=== PATIENT | female | born 1955 | race Caucasian/White ===

== ENCOUNTER 2019-08-25 14:09 | Emergency (ER) | payer BC ==
--- OUTSIDE RECORDS SUMMARY | 2019-08-25 14:15 | XMS REPORT ---
:1955 Author Name LucaLeslie gomezdith Address [address] [place] [address] Care Team Providers Name Role Phone Magda Perdue Unavailable Unavailable PROBLEMS Type Condition ICD9-CM Code [id number] Code Onset Dates Condition Status SNOMED Code Problem Rectocele N81.6 Active [id number] ALLERGIES No Information ENCOUNTERS Encounter Location Date Diagnosis [facility] [address] Oct, OBGYN [place], [place] [id number] [facility] O[facility] [address] [place] [address] Oct, Encounter for [address] [place], gynecological examination [place] [id number] (general) (routine) without abnormal findings Z01.419 ; Encounter for screening for malignant neoplasm of cervix Z12.4 and Encounter for screening for malignant neoplasm of colon Z12.11 [facility] Aug, OBGYN [place], [place] [id number] [facility] 103 Sep, [place]BG[place] [id number] [facility] O[facility] [address] [facility] Sep, Encounter for Road [address] [place], gynecological examination [place] [id number] (general) (routine) with abnormal findings Z01.411 ; Encounter for screening for malignant neoplasm of colon Z12.11 ; Encounter for other screening for malignant neoplasm of breast Z12.39 and Rectocele N81.6 [facility] [address] May, [place]BGYN [place], [place] [id number] [facility] [address] [facility] Jun, Encounter for Road [address] [place], gynecological examination [place] [id number] (general) (routine) without abnormal findings Z01.419 and Encounter for screening for malignant neoplasm of colon Z12.11 [facility] OBGYN 103 Apr, OBGYN [place], [place] [id number] [facility] [address] [facility] May, ROUTINE [employer] [address] [place], V72.31 ; SCREEN [place] [id number] NEOP-COLON V76.51 ; SCREEN MAMMOGRAM NEC V76.12 and 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 302.73 [facility] OBGYN 103 22 Jun, 2013 OBGYN [place], [place] [id number] [facility] [address] [facility] Jul, ROUTINE [employer] [place], V72.31 ; SCREEN [place] [id number] NEOP-COLON V76.51 ; SCREEN MAMMOGRAM NEC V76.12 ; FAMILY HX OSTEOPOROSIS V17.81 and Mastalgia 611.71 IMMUNIZATIONS No Known Immunizations SOCIAL HISTORY Never Assessed REASON FOR REFERRAL FUNCTIONAL STATUS PLAN OF CARE VITAL SIGNS MEDICATIONS Unknown Medications PROCEDURES No Known procedures RESULTS No Results REASON FOR VISIT 10/2019 Insurance Providers [facility] Member Patient Patient Patient Patient Patient Subscriber Subscriber Subscriber Group Insurance Plan Plan Plan Plan ID Relationship Address Phone Name Date of ID Name Date of No Type Insurance Insurance Insurance Coverage to Subscriber Address Phone Name Dates [employer] [phone] [employer] self [place] [id number] [place] [address] Cross/Blue [place] Cross/Blue Shield [id number] Shield MEDICAL (GENERAL) HISTORY Type Description Date Medical History anemia Medical History hypothyriodism Medical History reflux Medical History depression Medical History Mastalgia Medical History 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
--- NOTE | 2019-08-25 16:04 | ED ---
Complex/Multi-Sys Presentation - HPI Summary HPI Summary: 64 year old female presents with numbness in her feet today. States started 1 foot and went to the other foot. States that she was having chest pain that started after that. States it lasted for an hour. she is not currently having chest pain. It was a dull pressure in the center of her chest. she states was 5 out of 10. She states that she had no shortness breath. It did not change with deep breath. States she's been sick for past 4 weeks and was on zpack. Has had a cough occasionally. Denies any abdominal pain. No nausea or vomiting. No diarrhea. She denies any weakness. States she did have some numbness in feet only. no back pain. no urinary symptoms. no loss of bowel or bladder. no saddle anaesthesia. no fevers. She states this has never happened before. Does have family history of cardiac disease. States that she only has hypothyroidism. no pain or swelling in her calf muscles. No recent travel. - History Of Current Complaint Chief Complaint: EDGeneral Time Seen by Provider: 08/25/19 15:34 - Allergies/Home Medications Allergies/Adverse Reactions: Allergies Allergy/AdvReac Type Severity Reaction Status Date / Time No Known Allergies Allergy Verified 05/19/17 09:50 PMH/Surg Hx/FS Hx/Imm Hx Endocrine/Hematology History: Reports: Hx Thyroid Disease Denies: Hx Anticoagulant Therapy Respiratory History: Denies: Hx Asthma - Cancer History Hx Chemotherapy: No Hx Radiation Therapy: No Infectious Disease History: No Infectious Disease History: Denies: Traveled Outside the [place] in Last 30 Days - Family History Known Family History: Positive: Non-Contributory - Social History Alcohol Use: Occasionally Alcohol Amount: 1 glass of wine Substance Use Type: Reports: None Smoking Status (MU): Never Smoked Tobacco Review of Systems Negative: Fever Positive: Chest Pain Positive: Cough. Negative: Shortness Of Breath Neurological: Other - cold in feet All Other Systems Reviewed And Are Negative: Yes Physical Exam Triage Information Reviewed: Yes Vital Signs On Initial Exam: Initial Vitals Temp Pulse Resp BP Pulse Ox 98.1 F 68 15 129/66 99 08/25/19 14:10 08/25/19 14:10 08/25/19 14:10 08/25/19 14:10 08/25/19 14:10 Vital Signs Reviewed: Yes Appearance: Positive: Well-Appearing Skin: Positive: Warm, Dry Head/Face: Positive: Normal Head/Face Inspection Eyes: Positive: Normal, EOMI, ROSANNA ENT: Positive: Normal ENT inspection, Pharynx normal, TMs normal Respiratory/Lung Sounds: Positive: Clear to Auscultation, Breath Sounds Present Cardiovascular: Positive: Normal, RRR Abdomen Description: Positive: Nontender, Soft Bowel Sounds: Positive: Present Musculoskeletal: Positive: Normal, Strength/ROM Intact - feet, Other - good pulses Neurological: Positive: Normal Psychiatric: Positive: Normal Procedures - Sedation Patient Received Moderate/Deep Sedation with Procedure: No Diagnostics - Vital Signs Vital Signs Temp Pulse Resp BP Pulse Ox 08/25/19 14:10 98.1 F 68 15 129/66 99 - Laboratory Result Diagrams: 08/25/19 15:51 08/25/19 15:51 Lab Statement: Any lab studies that have been ordered have been reviewed, and results considered in the medical decision making process. - Radiology chest Radiology Interpretation Completed By: Radiologist Summary of Radiographic Findings: IMPRESSION: FINDINGS SUGGESTIVE OF COPD, NO EVIDENCE FOR ACUTE DISEASE. - EKG No standard instances Cardiac Rate: NL EKG Rhythm: Sinus Rhythm Summary of EKG Findings: sinus rhythm Re-Evaluation - Re-Evaluation First Eval Re-Evaluation Time: 16:48 Comment: no chest pain still, feet are slighlty colder but pulses normal. capillary refill<2 secs, sensation grossly intact Complex Multi-Symp Course/Dx Course Of Treatment: 64 year old female presents with numbness in her feet today. States started 1 foot and went to the other foot. States that she was having chest pain that started after that. States it lasted for an hour. It was a dull pressure in the center of her chest. she states was 5 out of 10. She states that she had no shortness breath. It did not change with deep breath. States she's been sick for past 4 weeks and was on zpack. Has had a cough occasionally. Denies any abdominal pain. No nausea or vomiting. No diarrhea. She denies any weakness. States she did have some numbness in feet only. no back pain. no urinary symptoms. no loss of bowel or bladder. no saddle anaesthesia. no fevers. She states this has never happened before. Does have family history of cardiac disease. States that she only has hypothyroidism. no pain or swelling in her calf muscles. No recent travel. On exam lungs CTA Heart regular rate and rhythm. EKG shows sinus rhythm. lab work wnl. troponin zero. heart score 2 and no chest pain here. Chest x-ray normal. We'll discharge to have follow primary. Patient understands and agrees the plan. - Diagnoses Differential Diagnoses/HQI/PQRI: Metabolic Abnormality, Other - angina, pneumonia Provider Diagnoses: Chest pain, Sensation of cold in leg Discharge ED - Sign-Out/Discharge Documenting (check all that apply): Patient Departure - Discharge Plan Condition: Good Disposition: HOME Patient Education Materials: Chest Pain (ED) Referrals: Claude Flowers MD [Primary Care Provider] - Additional Instructions: take tyenlol every 6 hours for pain follow up with primary within 5 days Return to ED if develop any new or worsening symptoms - Billing Disposition and Condition Condition: GOOD Disposition: Home - Attestation Statements Provider Attestation: I was available for consultation for this patient. I did not evaluate the patient or participate in any medical decision making or disposition decisions unless I am specifically named in the chart as having consulted on the patient. If I have consulted on the patient, please see my own ED note on the patient encounter. Ebonie Fontenot MD
[2019-08-25 16:13] LABS: ABS Lymphocytes 1.2 10^3/ul (1.0-4.8); ABS Monocytes 0.3 10^3/ul (0-0.8); ABS Neutrophils 2.8 10^3/ul (1.5-7.7); Eosinophil % 0.8 %; Hematocrit 37 % (35-47); Hemoglobin 12.4 g/dL (12.0-16.0); Lymphocyte % 26.7 %; Mean Corpuscular HGB Conc 34 g/dL (31-36); Mean Corpuscular Hemoglobin 29 pg (27-31); Mean Corpuscular Volume 86 fL (80-97); Mean Platelet Volume 8.2 fL (7.4-10.4); Nucleated Red Blood Cells % 0.1; Platelet Count 302 10^3/uL (150-450); Red Blood Count 4.28 10^6 /uL (3.70-4.87); Red Cell Distribution Width 13 % (10-15); White Blood Count 4.4 10^3/uL (3.5-10.8)
[2019-08-25 16:26] LABS: ALT 17 U/L (7-52); AST 19 U/L (13-39); Albumin 4.3 g/dL (3.2-5.2); Albumin/Globulin Ratio 1.6 (1-3); Alkaline Phosphatase 80 U/L (34-104); Anion Gap 9 mmol/L (2-11); BUN/Creatinine Ratio 16.9 (8-20); Blood Urea Nitrogen 12 mg/dL (6-24); C Reactive Protein < 1.00 mg/L (<8.01); CO2 Carbon Dioxide 25 mmol/L (22-32); Calcium 9.7 mg/dL (8.6-10.3); Chloride 106 mmol/L (101-111); EGFR African American 100.9 (>60); EGFR Non-African American 83.4 (>60); Globulin 2.7 g/dL (2-4); Glucose 104 mg/dL (70-100); Magnesium 2.1 mg/dL (1.9-2.7); Potassium 3.9 mmol/L (3.5-5.0); Sodium 140 mmol/L (135-145)
[2019-08-25 16:59] LABS: TSH (Thyroid Stimulating Horm) 2.18 mcIU/mL (0.34-5.60)
[2019-08-25 17:01] LABS: Free T4 1.01 ng/dL (0.61-1.12)
[2019-08-25 17:21] VITALS: BP 123/74
[2019-08-25 17:26] LABS: Urine Appearance Clear; Urine Bilirubin Negative (Negative); Urine Blood Negative (Negative); Urine Color Straw; Urine Glucose Negative (Negative); Urine Ketones Trace (Negative); Urine Nitrite Negative (Negative); Urine Protein Negative (Negative); Urine Specific Gravity 1.002 (1.010-1.030); Urine Urobilinogen Negative (Negative)
[2019-08-25 17:28] LABS: Urine Bacteria Absent (Absent); Urine Red Blood Cell Absent (Absent); Urine Squamous Epithelial Cell Present (Absent); Urine White Blood Cell Trace(0-5/hpf) (Absent)
== END 2019-08-25 17:20 | disposition home or self-care (01) ==
LOC: ED 14:09
DX: R07.89 Other chest pain (principal); R20.9 Unspecified disturbances of skin sensation; E03.9 Hypothyroidism, unspecified; Z82.49 Family history of ischemic heart disease and other diseases of the circulatory system
CPT/HCPCS: 36415; 71046; 80053; 81003; 81015; 83605; 83735; 84439; 84443; 84479; 84484; 85025; 86140; 87086; 93005; 99282